=== PATIENT | female | born 1995 | race American Indian/Alaskan Native ===

== ENCOUNTER 2017-08-28 04:27 | Emergency (ER) | payer SELFPAY ==
[2017-08-28 06:11] LABS: Basophils % (Auto) 0.1 % (0.0-1.8); Eosinophils % (Auto) 0.1 % (0.0-4.3); Hematocrit 41.8 % (30.3-42.9); Hemoglobin 13.7 gm/dl (10.1-14.3); Lymphocytes # (Auto) 1.2 K/mm3 (1.2-5.4); Lymphocytes % (Auto) 8.1 % (13.4-35.0); Mean Corpuscular HGB Conc 33 % (30-34); Mean Corpuscular Hemoglobin 31 pg (28-32); Mean Corpuscular Volume 94 fl (79-97); Monocytes # (Auto) 0.6 K/mm3 (0.0-0.8); Platelet Count 237 K/mm3 (140-440); Red Blood Count 4.43 M/mm3 (3.65-5.03)
[2017-08-28 06:26] LABS: Alanine Aminotransferase 16 units/L (7-56); Albumin 4.5 g/dL (3.9-5); BUN/Creatinine Ratio 13; Blood Urea Nitrogen 14 mg/dL (7-17); Calcium 9.8 mg/dL (8.4-10.2); Hemolysis Index 14; Lipase 12 units/L (13-60)
[2017-08-28 07:48] LABS: Bacteria,Urine 1+ /HPF (Negative); Bilirubin,Urine NEG (Negative); Blood,Urine NEG (Negative); Color,Urine Yellow (Yellow); Mucus,Urine FEW /HPF; Nitrite,Urine NEG (Negative); Urobilinogen,Urine < 2.0 mg/dL (<2.0)
[2017-08-28] MEDS ORDERED: TORADOL IM ONE (10:34)
[2017-08-28] MEDS ORDERED: PERCOCET 5/325 PO ONE (10:35)
--- NOTE | 2017-08-28 10:38 | Emergency Department Report ---
ED Abdominal Pain HPI - General Chief Complaint: Abdominal Pain Stated Complaint: ABD PAIN Time Seen by Provider: 08/28/17 10:34 Source: patient, EMS Mode of arrival: Ambulatory Limitations: No Limitations - History of Present Illness MD Complaint: flank pain -: Sudden Location: R flank Radiation: suprapubic Severity: severe Severity scale (0 -10): 8 Quality: sharp Improves With: nothing Worsens With: nothing Associated Symptoms: other (urinary urgency) - Related Data Previous Rx's Medication Instructions Recorded Last Taken Type Tamsulosin [Flomax] 0.4 mg PO QDAY 5 Days #5 cap 08/28/17 Unknown Rx oxyCODONE /ACETAMINOPHEN [Percocet 1 tab PO Q4HR #12 tab 08/28/17 Unknown Rx 5/325] Allergies Allergy/AdvReac Type Severity Reaction Status Date / Time amoxicillin Allergy Hives Verified 08/28/17 04:54 erythromycin base Allergy Hives Verified 08/28/17 04:54 ED Review of Systems ROS: Stated complaint: ABD PAIN Other details as noted in HPI Comment: All other systems reviewed and negative Constitutional: denies: chills, fever Respiratory: denies: cough ED Past Medical Hx - Past Medical History Previous Medical History?: No - Surgical History Past Surgical History?: No - Social History Smoking Status: Current Every Day Smoker Substance Use Type: None - Medications Home Medications: Home Medications Medication Instructions Recorded Confirmed Last Taken Type Tamsulosin [Flomax] 0.4 mg PO QDAY 5 Days #5 cap 08/28/17 Unknown Rx oxyCODONE /ACETAMINOPHEN [Percocet 1 tab PO Q4HR #12 tab 08/28/17 Unknown Rx 5/325] ED Physical Exam - General Limitations: No Limitations General appearance: alert, in no apparent distress - Head Head exam: Present: atraumatic, normocephalic - Eye Eye exam: Present: normal appearance - ENT ENT exam: Present: mucous membranes moist - Neck Neck exam: Present: normal inspection. Absent: meningismus - Respiratory Respiratory exam: Present: normal lung sounds bilaterally. Absent: respiratory distress, wheezes, rales, rhonchi - Cardiovascular Cardiovascular Exam: Present: regular rate, normal rhythm, normal heart sounds. Absent: systolic murmur, diastolic murmur, rubs, gallop - GI/Abdominal GI/Abdominal exam: Present: soft, normal bowel sounds. Absent: distended, tenderness, guarding, rebound - Extremities Exam Extremities exam: Present: normal inspection - Back Exam Back exam: Present: normal inspection. Absent: CVA tenderness (R), CVA tenderness (L) - Neurological Exam Neurological exam: Present: alert, oriented X3 - Psychiatric Psychiatric exam: Present: normal affect, normal mood - Skin Skin exam: Present: warm, dry, intact, normal color. Absent: rash ED Course Vital Signs 08/28/17 08/28/17 08/28/17 04:55 10:49 10:50 Temperature 97.8 F Pulse Rate 70 Respiratory 18 18 18 Rate Blood Pressure 137/97 Blood Pressure [Right] O2 Sat by Pulse 100 Oximetry 08/28/17 10:53 Temperature 98.1 F Pulse Rate 63 Respiratory 16 Rate Blood Pressure Blood Pressure 130/83 [Right] O2 Sat by Pulse 98 Oximetry ED Medical Decision Making - Lab Data Result diagrams: 08/28/17 05:01 08/28/17 05:01 - Radiology Data Radiology results: report reviewed - Medical Decision Making renal colic due to small right UVJ stone. patient given instructions. Pain improved with treatment in Ed. Critical care attestation.: If time is entered above; I have spent that time in minutes in the direct care of this critically ill patient, excluding procedure time. ED Disposition Clinical Impression: Renal colic on right side, Ureterolithiasis Disposition: TO HOME OR SELFCARE Is pt being admited?: No Does the pt Need Aspirin: No Condition: Good Instructions: Kidney Stones (ED) Prescriptions: oxyCODONE /ACETAMINOPHEN [Percocet 5/325] 1 tab PO Q4HR #12 tab Tamsulosin [Flomax] 0.4 mg PO QDAY 5 Days #5 cap Referrals: SRI MUÑOZ MD [Primary Care Provider] - 3-5 Days Time of Disposition: 12:10
[2017-08-28] MEDS ORDERED: TORADOL ONE (10:44)
[2017-08-28 10:55] VITALS: BP 130/83
--- NOTE | 2017-08-28 11:42 | Cat Scan Report ---
CT abdomen and pelvis without contrast: Right flank pain. Transverse images are obtained from the lower chest to the ischium. Coronal and sagittal 2-D reformatted images included. The visualized lung bases are normal. The abdominal organs appear normal. The kidneys are normal in size and contour. Suspicion of faint granular calculus in the central right collecting system. Mild increased density in the lower left collecting system with a 1-2 mm sized calculus centrally. The right ureter is not dilated however there is a 3 mm sized calculus suspected at the right UV junction. The unopacified bowel and mesentery is only remarkable in that there is mild increased colonic gas. Free fluid identified in the pelvis. No obvious pelvic organ enlargement. Impression: 1. Small bilateral renal calculi. 2. Suspect small right UVJ calculus. No obstruction. 3. Nonspecific pelvic fluid most likely in the cul-de-sac.
== END 2017-08-28 12:18 | disposition home or self-care (01) ==
LOC: ED 04:27
DX: N20.2 Calculus of kidney with calculus of ureter (principal); F17.200 Nicotine dependence, unspecified, uncomplicated; Z88.1 Allergy status to other antibiotic agents
CPT/HCPCS: 36415; 74176; 80053; 81001; 83690; 84703; 85025; 96372; 99284; J1885

== ENCOUNTER 2018-01-22 07:54 | Emergency (ER) | payer OTHER ==
[2018-01-22 08:06] VITALS: BP 112/71
--- NOTE | 2018-01-22 10:10 | Emergency Department Report ---
Chief Complaint: Extremity Injury, Upper Stated Complaint: TUMOR IN ARM BURNING AND PAIN Time Seen by Provider: 01/22/18 10:06 - HPI History of Present Illness: Patient is a 22-year-old female who is presenting with right arm pain. 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 Patient states she's been having difficulty sleeping for the past several days. Patient is not taking anything [id number] for this discomfort. Patient states the pain is 7 out of 10. Patient denies any fevers chills nausea vomiting diarrhea. There's been no injury. Patient states that the size of the swelling is not larger is just getting more uncomfortable. - ROS Review of Systems: All systems reviewed and are negative - Exam Vital Signs: Vital Signs 01/22/18 08:01 Temperature 98.5 F Pulse Rate 81 Respiratory 18 Rate Blood Pressure 112/71 O2 Sat by Pulse 98 Oximetry Physical Exam: Focused physical exam the patient's right deltoid does show approximately quarter sized area of swelling deep to the skin. There is no induration fluctuance or redness present. There is no erythema or warmth. The mass is slightly mobile. MSE screening note: Focused history and physical exam performed. Due to findings the following was ordered: ED Medical Decision Making - Medical Decision Making Patient's condition is chronic and does not appear to be infected requiring antibiotic therapy. Patient has not had a definitive diagnosis of what this growth of the skin is. Patient be referred to surgery for possible biopsy. Patient also be given [facility] information for follow-up primary care. Patient is not insured and has a nonmedical emergency at this time and opt to not pay E $150 co-pay to be given prescriptions. ED Disposition for MSE Clinical Impression: Mass of arm Qualifiers: Laterality: right Qualified Code(s): R22.31 - Localized swelling, mass and lump , right upper limb Disposition: MED SCREENING EXAM-LEFT Is pt being admited?: No Does the pt Need Aspirin: No Condition: Stable Additional Instructions: Please take up to 800 mg of Motrin every 6 hours for pain and swelling Referrals: [facility] [Outside] - 3-5 Days RUDDY GOODE MD [Staff Physician] - 3-5 Days
== END 2018-01-22 10:17 | disposition left against medical advice (07) ==
LOC: ED 07:54
DX: R22.31 Localized swelling, mass and lump, right upper limb (principal)
CPT/HCPCS: 99282

== ENCOUNTER 2018-02-26 15:22 | Emergency (ER) | payer SELFPAY ==
[2018-02-26 15:56] VITALS: BP 112/82
[2018-02-26 16:43] LABS: HCG Qualitative,Urine Negative (Negative)
[2018-02-26 16:44] LABS: Bacteria,Urine 1+ /HPF (Negative); Bilirubin,Urine NEG (Negative); Blood,Urine NEG (Negative); Color,Urine Yellow (Yellow); Mucus,Urine FEW /HPF; Protein,Urine <15 mg/dL mg/dL (Negative); Urobilinogen,Urine < 2.0 mg/dL (<2.0); WBC,Urine < 1.0 /HPF (0.0-6.0)
--- NOTE | 2018-02-26 17:34 | Emergency Department Report ---
ED Abdominal Pain HPI - General Chief Complaint: Abdominal Pain Stated Complaint: ABDOMINAL PAINS Time Seen by Provider: 02/26/18 17:24 Source: patient Mode of arrival: Ambulatory Limitations: No Limitations - History of Present Illness Initial Comments: This is a 22-year-old -[place] female who presents with lower pelvic pain and dysuria for 3 days. Patient states she has also had some nausea for 1 week. Patient states she took a home test 3 days ago and had faint lines and unsure if she has . Patient states she discontinued taking Effexor one week ago with hopes of being . Patient states lower fifth pain is intermittent and 6 out of 10 on pain scale with cramping intensity. Cramping should also states she had diarrhea 2 days ago for 1 day, liquid consistency. Last menstrual period was 02/01/2018, A3. Patient denies frequency, urgency, vaginal discharge or bleeding, chest pain, shortness of breath, and fever. MD Complaint: abdominal pain Location: diffuse Radiation: none Migration to: no migration Severity: mild Severity scale (0 -10): 6 Quality: cramping Consistency: intermittent Improves With: nothing Worsens With: nothing Associated Symptoms: nausea, diarrhea. denies: vomiting - Related Data LMP Date: 02/11/18 LMP (females 10-50): 1 month Previous Rx's Medication Instructions Recorded Last Taken Type Tamsulosin [Flomax] 0.4 mg PO QDAY 5 Days #5 cap 08/28/17 Unknown Rx oxyCODONE /ACETAMINOPHEN [Percocet 1 tab PO Q4HR #12 tab 08/28/17 Unknown Rx 5/325] Naproxen [Naprosyn TAB] 500 mg PO BID PRN #15 tablet 02/26/18 Unknown Rx Allergies Allergy/AdvReac Type Severity Reaction Status Date / Time amoxicillin Allergy Hives Verified 08/28/17 04:54 erythromycin base Allergy Hives Verified 08/28/17 04:54 ED Review of Systems ROS: Stated complaint: ABDOMINAL PAINS Other details as noted in HPI Constitutional: denies: chills, fever Respiratory: denies: cough, shortness of breath, wheezing Cardiovascular: denies: chest pain, palpitations Gastrointestinal: abdominal pain (generalized abdominal cramping), nausea. denies: vomiting, diarrhea, constipation, hematemesis, melena, hematochezia Genitourinary: denies: urgency, dysuria, frequency, discharge Musculoskeletal: denies: back pain, joint swelling, arthralgia Neurological: denies: headache, weakness, numbness, paresthesias Psychiatric: denies: anxiety, depression ED Past Medical Hx - Past Medical History Previous Medical History?: Yes Additional medical history: Right arm tumor - Surgical History Past Surgical History?: No - Social History Smoking Status: Never Smoker - Medications Home Medications: Home Medications Medication Instructions Recorded Confirmed Last Taken Type Tamsulosin [Flomax] 0.4 mg PO QDAY 5 Days #5 cap 08/28/17 Unknown Rx oxyCODONE /ACETAMINOPHEN [Percocet 1 tab PO Q4HR #12 tab 08/28/17 Unknown Rx 5/325] Naproxen [Naprosyn TAB] 500 mg PO BID PRN #15 tablet 02/26/18 Unknown Rx ED Physical Exam - General Limitations: No Limitations General appearance: alert, in no apparent distress - Respiratory Respiratory exam: Present: normal lung sounds bilaterally. Absent: respiratory distress - Cardiovascular Cardiovascular Exam: Present: regular rate, normal rhythm. Absent: systolic murmur, diastolic murmur, rubs, gallop - GI/Abdominal GI/Abdominal exam: Present: soft, tenderness (right upper quadrant tenderness), normal bowel sounds. Absent: organomegaly, mass - Back Exam Back exam: Present: normal inspection, full ROM. Absent: CVA tenderness (R), CVA tenderness (L) - Neurological Exam Neurological exam: Present: alert, oriented X3, normal gait - Psychiatric Psychiatric exam: Present: normal affect, normal mood - Skin Skin exam: Present: warm, dry, intact, normal color. Absent: rash ED Course Vital Signs 02/26/18 02/26/18 15:53 20:41 Temperature 98.7 F 98.5 F Pulse Rate 77 82 Respiratory 16 18 Rate Blood Pressure 112/82 O2 Sat by Pulse 98 97 Oximetry ED Medical Decision Making - Lab Data Result diagrams: 02/26/18 17:39 02/26/18 17:39 Lab Results 02/26/18 02/26/18 02/26/18 Range/Units 16:20 17:39 17:39 WBC 7.1 (4.5-11.0) K/mm3 RBC 4.62 (3.65-5.03) M/mm3 Hgb 14.7 H (10.1-14.3) gm/dl Hct 43.2 H (30.3-42.9) % MCV 94 (79-97) fl MCH 32 (28-32) pg MCHC 34 (30-34) % RDW 13.1 L (13.2-15.2) % Plt Count 208 (140-440) K/mm3 Lymph % (Auto) 28.8 (13.4-35.0) % [place] % (Auto) 4.7 (0.0-7.3) % Eos % (Auto) 1.5 (0.0-4.3) % Baso % (Auto) 0.2 (0.0-1.8) % Lymph # 2.0 (1.2-5.4) K/mm3 [place] # 0.3 (0.0-0.8) K/mm3 Eos # 0.1 (0.0-0.4) K/mm3 Baso # 0.0 (0.0-0.1) K/mm3 Seg Neutrophils % 64.8 (40.0-70.0) % Seg Neutrophils # 4.6 (1.8-7.7) K/mm3 Sodium 143 (137-145) mmol/L Potassium 4.4 (3.6-5.0) mmol/L Chloride 103.0 (98-107) mmol/L Carbon Dioxide 26 (22-30) mmol/L Anion Gap 18 mmol/L BUN 12 (7-17) mg/dL Creatinine 0.6 L (0.7-1.2) mg/dL Estimated GFR > 60 ml/min BUN/Creatinine Ratio 20 % Glucose 77 (65-100) mg/dL Calcium 9.8 (8.4-10.2) mg/dL Total Bilirubin < 0.20 (0.1-1.2) mg/dL AST 16 (5-40) units/L ALT 10 (7-56) units/L Alkaline Phosphatase 80 (35-129) units/L Total Protein 6.6 (6.3-8.2) g/dL Albumin 4.5 (3.9-5) g/dL Albumin/Globulin Ratio 2.1 % Lipase 19 (13-60) units/L Urine Color Yellow (Yellow) Urine Turbidity Clear (Clear) Urine pH 6.0 (5.0-7.0) Ur Specific [place] 1.020 (1.003-1.030) Urine Protein <15 mg/dl (Negative) mg/dL Urine Glucose (UA) Neg (Negative) mg/dL Urine Ketones Neg (Negative) mg/dL Urine Blood Neg (Negative) Urine Nitrite Neg (Negative) Ur Reducing Substances Not Reportable Urine Bilirubin Neg (Negative) Urine Ictotest Not Reportable Urine Urobilinogen < 2.0 (<2.0) mg/dL Ur Leukocyte Esterase Neg (Negative) Urine WBC (Auto) < 1.0 (0.0-6.0) /HPF Urine RBC (Auto) 1.0 (0.0-6.0) /HPF U Epithel Cells (Auto) 5.0 (0-13.0) /HPF Urine Bacteria (Auto) 1+ (Negative) /HPF Urine Mucus Few /HPF Urine HCG, Qual Negative (Negative) - Radiology Data Radiology results: report reviewed PROCEDURE: CT ABDOMEN PELVIS WO CON TECHNIQUE: Computerized axial tomography of the abdomen and pelvis was performed without intravenous contrast. This study is performed without intravascular contrast material and its sensitivity for abdominal and pelvic pathology, including neoplasms, inflammation, abscess, free fluid, thrombosis, arterial dissection and infarction, is reduced compared with a contrast enhanced study. HISTORY: RUQ tenderness COMPARISON: No prior studies are available for comparison. FINDINGS: Visualized lower thorax: No significant abnormality. Liver: Normal size and attenuation. Spleen: Normal size and attenuation. Gallbladder and biliary system: Normal. Pancreas: Normal. Adrenals: Normal. Kidneys: No hydronephrosis. Small 2 millimeter nonobstructing left renal calculus GI tract: Appendix is visualized and does not appear inflamed. No bowel obstruction or acute inflammation is seen. There is moderate volume of stool in the colon. Lymph nodes and mesentery: Normal. Vasculature: Normal. Bladder: Normal. Reproductive organs: Limited evaluation. There is a probable 2.5 centimeter right ovarian cyst. Peritoneum: Moderate volume of fluid is seen in the pelvis, more than expected for physiologic fluid. Musculoskeletal structures: No significant abnormality. Other: None. IMPRESSION: Moderate volume of free fluid is seen in the pelvis, more than expected for physiologic fluid. Findings could be related to inflammatory process or other process such as a ruptured ovarian cyst. - Medical Decision Making This is a 22-year-old -[place] female who presents with intermittent abdominal pain and dysuria for one week. Patient was examined by me. Vitals are normal and patient is in no acute distress. Obtained CBC, CMP, lipase, and CT of the abdomen and pelvis. Moderate volume of free fluid is seen in the pelvis, more than expected for physiologic fluid. Findings could be related to inflammatory process or other process such as a ruptured ovarian cyst. Negative urine hCG and all of his labs are unremarkable. Patient was aware of ovarian cysts and informed of the results. Plan discussed with patient to discharge home and follow-up with [facility]. Patient given referrals of [facility] to follow-up with. Patient discharged home in stable condition. Follow up with PCP in 2-3 days. Critical care attestation.: If time is entered above; I have spent that time in minutes in the direct care of this critically ill patient, excluding procedure time. ED Disposition Clinical Impression: Ruptured ovarian cyst Abdominal pain Qualifiers: Abdominal location: right upper quadrant Qualified Code(s): R10.11 - Right upper quadrant pain Disposition: TO HOME OR SELFCARE Is pt being admited?: No Does the pt Need Aspirin: No Condition: Stable Instructions: Ovarian Cyst (ED), Abdominal Pain (ED) Additional Instructions: Follow-up with [facility] for further management of symptoms. Take ibuprofen or Tylenol for pain. Follow up with primary care provider in 2-3 days. Prescriptions: Naproxen [Naprosyn TAB] 500 mg PO BID PRN #15 tablet PRN Reason: Pain, Moderate (4-6) Referrals: [facility] [Provider Group] - 3-5 Days [facility] [Provider Group] - 3-5 Days [facility] [Outside] - 3-5 Days Time of Disposition: 20:23 Print Language: IRAQI
[2018-02-26 17:49] LABS: Basophils % (Auto) 0.2 % (0.0-1.8); Eosinophils # (Auto) 0.1 K/mm3 (0.0-0.4); Eosinophils % (Auto) 1.5 % (0.0-4.3); Hematocrit 43.2 % (30.3-42.9); Hemoglobin 14.7 gm/dl (10.1-14.3); Lymphocytes % (Auto) 28.8 % (13.4-35.0); Mean Corpuscular HGB Conc 34 % (30-34); Mean Corpuscular Hemoglobin 32 pg (28-32); Mean Corpuscular Volume 94 fl (79-97); Monocytes # (Auto) 0.3 K/mm3 (0.0-0.8); Monocytes % (Auto) 4.7 % (0.0-7.3); Platelet Count 208 K/mm3 (140-440); Red Blood Count 4.62 M/mm3 (3.65-5.03); Red Cell Distribution Width 13.1 % (13.2-15.2)
[2018-02-26 18:11] LABS: Alanine Aminotransferase 10 units/L (7-56); Albumin 4.5 g/dL (3.9-5); BUN/Creatinine Ratio 20; Blood Urea Nitrogen 12 mg/dL (7-17); Calcium 9.8 mg/dL (8.4-10.2); Hemolysis Index 25; Lipase 19 units/L (13-60)
--- NOTE | 2018-02-26 19:55 | Cat Scan Report ---
FINAL REPORT PROCEDURE: CT ABDOMEN PELVIS WO CON TECHNIQUE: Computerized axial tomography of the abdomen and pelvis was performed without intravenous contrast. This study is performed without intravascular contrast material and its sensitivity for abdominal and pelvic pathology, including neoplasms, inflammation, abscess, free fluid, thrombosis, arterial dissection and infarction, is reduced compared with a contrast enhanced study. HISTORY: RUQ tenderness COMPARISON: No prior studies are available for comparison. FINDINGS: Visualized lower thorax: No significant abnormality. Liver: Normal size and attenuation. Spleen: Normal size and attenuation. Gallbladder and biliary system: Normal. Pancreas: Normal. Adrenals: Normal. Kidneys: No hydronephrosis. Small 2 millimeter nonobstructing left renal calculus GI tract: Appendix is visualized and does not appear inflamed. No bowel obstruction or acute inflammation is seen. There is moderate volume of stool in the colon. Lymph nodes and mesentery: Normal. Vasculature: Normal. Bladder: Normal. Reproductive organs: Limited evaluation. There is a probable 2.5 centimeter right ovarian cyst. Peritoneum: Moderate volume of fluid is seen in the pelvis, more than expected for physiologic fluid. Musculoskeletal structures: No significant abnormality. Other: None. IMPRESSION: Moderate volume of free fluid is seen in the pelvis, more than expected for physiologic fluid. Findings could be related to inflammatory process or other process such as a ruptured ovarian cyst.
== END 2018-02-26 20:41 | disposition home or self-care (01) ==
LOC: ED 15:22
DX: N83.209 Unspecified ovarian cyst, unspecified side (principal); R10.11 Right upper quadrant pain; Z88.1 Allergy status to other antibiotic agents
CPT/HCPCS: 36415; 74176; 80053; 81001; 81025; 83690; 85025

== ENCOUNTER 2018-12-01 22:06 | Emergency (ER) | payer MEDICAID ==
[2018-12-01 22:28] VITALS: BP 96/64
--- NOTE | 2018-12-01 22:28 | Emergency Department Report ---
Chief Complaint: Abdominal Pain Stated Complaint: ABD PAIN Time Seen by Provider: 12/01/18 22:27 - HPI History of Present Illness: lmp 10/09 co nausea/abd pain no vag bleed/dc no care mse completed - Exam Vital Signs: Vital Signs 12/01/18 22:26 Temperature 99 F Pulse Rate 85 Respiratory 18 Rate Blood Pressure 96/64 O2 Sat by Pulse 100 Oximetry MSE screening note: Focused history and physical exam performed. Due to findings the following was ordered: ED Disposition for MSE Condition: Stable Instructions: Abdominal Pain (ED)
[2018-12-01] MEDS ORDERED: NACL 0.9% 1000 ML 1,000 ML IV ONE (22:29)
[2018-12-01] MEDS ORDERED: ZOFRAN IV ONE (22:29)
[2018-12-01 22:53] LABS: Basophils # (Auto) 0.2 K/mm3 (0.0-0.1); Eosinophils # (Auto) 0.1 K/mm3 (0.0-0.4); Eosinophils % (Auto) 0.5 % (0.0-4.3); Hematocrit 40.6 % (30.3-42.9); Hemoglobin 13.6 gm/dl (10.1-14.3); Lymphocytes # (Auto) 1.6 K/mm3 (1.2-5.4); Lymphocytes % (Auto) 14.5 % (13.4-35.0); Mean Corpuscular HGB Conc 34 % (30-34); Mean Corpuscular Volume 95 fl (79-97); Monocytes # (Auto) 0.4 K/mm3 (0.0-0.8); Monocytes % (Auto) 3.9 % (0.0-7.3); Platelet Count 254 K/mm3 (140-440); Red Cell Distribution Width 12.6 % (13.2-15.2)
[2018-12-01 23:12] LABS: BUN/Creatinine Ratio 15; Blood Urea Nitrogen 9 mg/dL (7-17); Calcium 9.3 mg/dL (8.4-10.2); Hemolysis Index 16
[2018-12-01 23:41] LABS: Bilirubin,Urine NEG (Negative); Blood,Urine NEG (Negative); Color,Urine Yellow (Yellow); Mucus,Urine 3+ /HPF; Protein,Urine <15 mg/dL mg/dL (Negative)
== END 2018-12-02 01:19 | disposition left against medical advice (07) ==
LOC: EEVIPCON 22:06 → ED 22:06
DX: R10.9 Unspecified abdominal pain (principal); Z53.21 Procedure and treatment not carried out due to patient leaving prior to being seen by health care provider
CPT/HCPCS: 36415; 80048; 81001; 84702; 85025

== ENCOUNTER 2019-05-23 11:16 | Outpatient (CLI) | payer OTHER ==
[2019-05-23] MEDS ORDERED: LACTATED RINGERS 1,000 ML ONE (12:37)
[2019-05-23] MEDS ORDERED: LACTATED RINGERS 500 ML IV ONE (12:51)
[2019-05-23] MEDS ORDERED: TERBUTALINE 1 MG/1 ML INJ ONE (13:00)
[2019-05-23] MEDS: TERBUTALINE 1 MG/1 ML INJ SUB-Q SCH ×2 (13:02→13:52)
[2019-05-23 13:30] LABS: Bacteria,Urine 1+ /HPF (Negative); Bilirubin,Urine NEG (Negative); Blood,Urine NEG (Negative); Color,Urine Yellow (Yellow); Mucus,Urine 3+ /HPF; Protein,Urine <15 mg/dL mg/dL (Negative); Urobilinogen,Urine < 2.0 mg/dL (<2.0)
[2019-05-23 13:53] LABS: Amphetamine Screen,Urine PRESUMPTIVE NEGATIVE; Benzodiazepines Screen,Urine PRESUMPTIVE NEGATIVE; Cocaine Screen,Urine PRESUMPTIVE NEGATIVE; Methadone Screen,Urine PRESUMPTIVE NEGATIVE; Opiate Screen,Urine PRESUMPTIVE NEGATIVE
[2019-05-23 14:07] LABS: Cannabinoid Screen,Urine PRESUMPTIVE POSITIVE
[2019-05-23 14:15] VITALS: BP 105/57
== END 2019-05-23 14:28 | disposition left against medical advice (07) ==
LOC: TRG 11:16
PROVIDERS: ATTEND Obstetrics & Gynecology
DX: O26.892 Other specified pregnancy related conditions, second trimester (principal); R10.2 Pelvic and perineal pain; R30.0 Dysuria; R35.0 Frequency of micturition; O99.333 Smoking (tobacco) complicating pregnancy, third trimester; F17.200 Nicotine dependence, unspecified, uncomplicated; Z3A.32 32 weeks gestation of pregnancy
CPT/HCPCS: 59025; 80307; 81001; 96372; J3105; J7120

== ENCOUNTER 2019-05-25 10:40 | Outpatient (CLI) | payer OTHER ==
[2019-05-25 11:16] VITALS: BP 104/63
[2019-05-25] MEDS ORDERED: LACTATED RINGERS 500 ML IV ONE (11:45)
[2019-05-25] MEDS ORDERED: LACTATED RINGERS 1,000 ML IV SCH (12:00)
[2019-05-25 12:26] LABS: Bilirubin,Urine NEG (Negative); Blood,Urine MOD (Negative); Color,Urine Yellow (Yellow); Mucus,Urine FEW /HPF; Protein,Urine <15 mg/dL mg/dL (Negative); Urobilinogen,Urine < 2.0 mg/dL (<2.0)
[2019-05-25 12:45] LABS: Amphetamine Screen,Urine PRESUMPTIVE NEGATIVE; Benzodiazepines Screen,Urine PRESUMPTIVE NEGATIVE; Cocaine Screen,Urine PRESUMPTIVE NEGATIVE; Methadone Screen,Urine PRESUMPTIVE NEGATIVE; Opiate Screen,Urine PRESUMPTIVE NEGATIVE
[2019-05-25 13:04] LABS: Cannabinoid Screen,Urine PRESUMPTIVE POSITIVE
[2019-05-25] MEDS ORDERED: oxyCODONE /ACETAMINOPHEN 5-325MG TAB PO PRN (13:28)
[2019-05-25 14:08] LABS: Basophils % (Auto) 0.1 % (0.0-1.8); Eosinophils % (Auto) 0.4 % (0.0-4.3); Hematocrit 34.9 % (30.3-42.9); Hemoglobin 11.5 gm/dl (10.1-14.3); Lymphocytes # (Auto) 1.2 K/mm3 (1.2-5.4); Lymphocytes % (Auto) 9.3 % (13.4-35.0); Mean Corpuscular HGB Conc 33 % (30-34); Mean Corpuscular Volume 91 fl (79-97); Monocytes # (Auto) 0.5 K/mm3 (0.0-0.8); Platelet Count 195 K/mm3 (140-440); Red Blood Count 3.82 M/mm3 (3.65-5.03); Red Cell Distribution Width 13.5 % (13.2-15.2)
[2019-05-25] MEDS ORDERED: AMPICILLIN/NS 2 GM/100 ML 2 GM/100 ML BAG IV ONE (14:37)
== END 2019-05-25 15:11 | disposition home or self-care (01) ==
LOC: TRG 10:40
PROVIDERS: ATTEND Obstetrics & Gynecology
DX: O26.893 Other specified pregnancy related conditions, third trimester (principal); M54.9 Dorsalgia, unspecified; O99.343 Other mental disorders complicating pregnancy, third trimester; F32.9 Major depressive disorder, single episode, unspecified; O99.333 Smoking (tobacco) complicating pregnancy, third trimester; Z3A.32 32 weeks gestation of pregnancy
CPT/HCPCS: 36415; 59025; 80307; 81001; 85025; 87086; 96361; 96374; J0290; J7120; 96360; J0690

== ENCOUNTER 2019-07-14 18:47 | Outpatient (CLI) | payer OTHER ==
[2019-07-14 19:03] VITALS: BP 113/78
== END 2019-07-14 20:11 | disposition home or self-care (01) ==
LOC: TRG 18:47
PROVIDERS: ATTEND Obstetrics & Gynecology
DX: O47.1 False labor at or after 37 completed weeks of gestation (principal); Z3A.39 39 weeks gestation of pregnancy
CPT/HCPCS: 59025

== ENCOUNTER 2019-07-19 16:25 | Outpatient (CLI) | payer OTHER ==
[2019-07-19 18:07] VITALS: BP 111/76
--- NOTE | 2019-07-19 20:26 | Ultrasound Report ---
Limited OB ultrasound INDICATION: well-being FINDINGS: There is a single intrauterine in a cephalic presentation. The amniotic fluid index is 15.2 cm which is within the normal range. heart rate is 153 bpm. IMPRESSION: There is a single intrauterine . Amniotic fluid index is normal. BIOPHYSICAL PROFILE INDICATION: well-being COMPARISON: None FINDINGS: breathing movement: 2/2 movement: 2/2 posture and tone: 2/2 Qualitative amniotic fluid volume: 2/2 IMPRESSION: Total score for biophysical profile is 8/8 heart rate is 153 bpm Signer Name: Kolton Ramirez MD Signed: 07/19/2019 8:21 PM Workstation Name: [id number]
== END 2019-07-19 20:34 | disposition home or self-care (01) ==
LOC: TRG 16:25
PROVIDERS: ATTEND Obstetrics & Gynecology
DX: O47.1 False labor at or after 37 completed weeks of gestation (principal); Z3A.40 40 weeks gestation of pregnancy
CPT/HCPCS: 76815; 76819

== ENCOUNTER 2019-07-22 11:57 | Inpatient (IN) | payer OTHER ==
--- NOTE | 2019-07-22 18:49 | Ultrasound Report ---
US OB BPP wo non-stress INDICATION / CLINICAL INFORMATION: 40 weeks and 6 days gest. COMPARISON: None available. FINDINGS: breathing movements: 2 movements: 2 posture and tone: 2 Amniotic fluid volume: 2 Total score for biophysical profile: 8 IMPRESSION: 1. Normal study. Signer Name: Ponce Wilson MD Signed: 07/22/2019 6:45 PM Workstation Name: [id number]
--- NOTE | 2019-07-22 19:54 | History and Physical Report ---
History of Present Illness Date of examination: 07/22/19 Chief complaint: Contractions History of present illness: Pt is a 24yo BF EDC 07/16/19; EGA 40 6/7 weeks presents to L&D complaining of RUC's q 3-5 mins. She received care at [facility] since 12 weeks and co-managed by [facility] for Opiod abuse. records are available and GBS is Positive. Past History Past Medical History: asthma, hypertension, other (anxiety and depression) Past Surgical History: no surgical history Family/Genetic History: hypertension Social history: no significant social history, , prescription drug abuse - Obstetrical History Expected Date of Delivery: 07/16/19 Actual Gestation: 41 Week(s) 0 Day(s) : 2 Medications and Allergies Allergies Allergy/AdvReac Type Severity Reaction Status Date / Time amoxicillin Allergy Hives Verified 08/28/17 04:54 erythromycin base Allergy Hives Verified 08/28/17 04:54 latex Allergy Rash Verified 12/01/18 22:14 Home Medications Medication Instructions Recorded Confirmed Last Taken Type No Known Home Medications [No 05/25/19 07/22/19 Unknown History Reported Home Medications] Review of Systems All systems: negative - Vital Signs Vital signs: Vital Signs Temp Pulse Resp BP 98.3 F 108 H 18 138/61 07/22/19 18:30 07/22/19 18:30 07/22/19 18:30 07/22/19 18:30 Temp Pulse Resp BP Pulse Ox 98.3 F 108 H 18 138/61 07/22/19 18:30 07/22/19 18:30 07/22/19 18:30 07/22/19 18:30 - Physical Exam Breasts: Positive: deferred Cardiovascular: Regular rate Lungs: Positive: Clear to auscultation Abdomen: Positive: normal appearance Genitourinary (Female): Positive: normal external genitalia Vagina: Positive: normal moisture Uterus: Positive: enlarged Extremities: Positive: normal - Obstetrical FHR: category 1 Uterine Contraction Monitor Mode: External Cervical Dilatation: 1.5 (per nurse) Cervical Effacement Percentage: 60 (per nurse) station: -3 Uterine Contraction Pattern: Irregular Uterine Tone Measurement Phase: Contraction Uterine Contraction Intensity: Moderate Results Result Diagrams: 07/22/19 20:33 All other labs normal. Ultrasound: report reviewed (BPP 03/04) Assessment and Plan - Patient Problems (1) 40 weeks gestation of Onset Date: 07/22/19 Current Visit: Yes Status: Acute Plan to address problem: A: IUP @ 40 6/7 weeks in early labor GBS Positive P: Admit to L&D for low dose pitocin induction of labor IV Clindamycin
[2019-07-22] MEDS ORDERED: ePHEDrine SULFATE 50 MG/1 ML INJ IV PRN (20:11)
[2019-07-22] MEDS ORDERED: TERBUTALINE 1 MG/1 ML INJ IVP PRN (20:11)
[2019-07-22] MEDS ORDERED: ONDANSETRON 4 MG/2 ML INJ IV PRN (20:11)
[2019-07-22] MEDS ORDERED: fentaNYL 100 MCG/2 ML INJ IV PRN (20:11)
[2019-07-22] MEDS ORDERED: MINERAL OIL 30 ML ORAL LIQD PO PRN (20:11)
[2019-07-22] MEDS ORDERED: LIDOCAINE (2%) 20 MG/1 ML VIAL 20 ML MDV INFILTRATI ONE (20:11)
[2019-07-22] MEDS ORDERED: TERBUTALINE 1 MG/1 ML INJ SUB-Q PRN (20:11)
[2019-07-22] MEDS ORDERED: BUTORPHANOL 2 MG/1 ML INJ IV PRN (20:11)
[2019-07-22] MEDS ORDERED: ZOLPIDEM 5 MG TAB PO PRN (20:33)
[2019-07-22 20:55] LABS: Hemoglobin 10.4 gm/dl (10.1-14.3); Mean Corpuscular HGB Conc 33 % (30-34); Mean Corpuscular Volume 87 fl (79-97); Platelet Count 195 K/mm3 (140-440); Red Blood Count 3.58 M/mm3 (3.65-5.03); Red Cell Distribution Width 14.8 % (13.2-15.2)
[2019-07-22] MEDS ORDERED: OXYTOCIN DRIP 30 UNITS/500 ML BAG IV SCH ×2 (21:00)
[2019-07-22] MEDS ORDERED: OXYTOCIN 20 UNIT/1000ML DRIP 20 UNITS/1,000 ML BAG IV SCH (21:00)
[2019-07-22] MEDS: LACTATED RINGERS 1,000 ML IV SCH (23:27)
[2019-07-23] MEDS: LACTATED RINGERS 1,000 ML IV SCH ×3 (07:55→15:10)
[2019-07-23] MEDS ORDERED: FLU VACC QUAD 2019-20 (3 YR UP)/PF 60 MCG/0.5 ML SYRINGE IM ONE (12:00)
--- NOTE | 2019-07-23 12:18 | Progress Note ---
Assessment and Plan - Patient Problems (1) 40 weeks gestation of Onset Date: 07/22/19 Current Visit: Yes Status: Acute Plan to address problem: A: IUP @ 41 0/7 weeks in labor GBS Positive P: Continue with pitocin induction of labor IV Clindamycin Subjective - Subjective Date of service: 07/23/19 Principal diagnosis: IUP @ 41 0/7 weeks Interval history: Pt is a 24yo BF EDC 07/16/19; EGA 41 0/7 weeks presented to L&D complaining of RUC's q 3-5 mins. She received care at [facility] since 12 weeks and co-managed by [facility] for Opiod abuse. She is currently on pitocin 24mu/min and rory q 3-4 mins. GBS is Positive. Patient reports: loss of fluid, movement normal, contractions, no new complaints, no vaginal bleeding Objective - Vital Signs Vital Signs: Vital Signs - 12hr 07/23/19 07/23/19 07/23/19 01:01 03:00 04:00 Temperature Pulse Rate 96 H 93 H 81 Blood Pressure 115/79 92/53 110/57 07/23/19 07/23/19 07/23/19 05:00 06:00 07:01 Temperature Pulse Rate 85 76 88 Blood Pressure 91/54 108/66 111/80 07/23/19 07/23/19 07/23/19 08:00 09:01 10:00 Temperature 97.8 F Pulse Rate 101 H 96 H Blood Pressure 118/80 103/62 07/23/19 07/23/19 11:02 12:01 Temperature Pulse Rate 96 H 93 H Blood Pressure 119/74 117/63 - Exam Breasts: deferred Abdomen: Present: normal appearance, soft Uterus: Present: normal FHR: category 1 Uterine Contraction Monitor Mode: External Cervical Dilatation: 2 Cervical Effacement Percentage: 80 station: -2 Uterine Contraction Pattern: Regular Uterine Tone Measurement Phase: Contraction Uterine Contraction Intensity: Moderate - Labs Labs: Abnormal Labs 07/22/19 20:33 RBC 3.58 L Laboratory Results - last 24 hr 07/22/19 07/22/19 20:33 20:33 WBC 10.2 RBC 3.58 L Hgb 10.4 Hct 31.0 MCV 87 MCH 29 MCHC 33 RDW 14.8 Plt Count 195 Blood Type O POSITIVE Antibody Screen Negative
[2019-07-23] MEDS ORDERED: DEXMEDETOMIDINE 200 MCG/2 ML VIAL IV ONE (13:49)
--- NOTE | 2019-07-23 14:23 | Anesthesia Consultation ---
Anesthesia Consult and Med Hx Date of service: 07/23/19 - Airway Anesthetic Teeth Evaluation: Good ROM Head & Neck: Adequate Mental/Hyoid Distance: Adequate Mallampati Class: Class II Intubation Access Assessment: Probably Good - Pulmonary Exam CTA: Yes - Cardiac Exam Cardiac Exam: No Murmur - Pre-Operative Health Status ASA Pre-Surgery Classification: ASA2 Proposed Anesthetic Plan: Epidural - Pulmonary Hx Smoking: Yes Hx Asthma: No Hx Respiratory Symptoms: No SOB: No COPD: No Home Oxygen Therapy: No Hx Pneumonia: No Hx Sleep Apnea: No - Cardiovascular System Hx Hypertension: No Hx Coronary Artery Disease: No Hx Heart Attack/AMI: No Hx Angina: No Hx Percutaneous Transluminal Coronary Angioplasty (PTCA): No Hx Cardia Arrhythmia: No Hx Pacemaker: No Hx Internal Defibrillator: No Hx Valvular Heart Disease: No Hx Heart Murmur: No Hx Peripheral Vascular Disease: No - Central Nervous System Hx Neuromuscular Disorder: No Hx Seizures: No CVA: No Hx Back Pain: No Hx Psychiatric Problems: Yes (depression no meds) - Gastrointestinal Hx Ulcer: No Hx Gastroesophageal Reflux Disease: No - Endocrine Hx Renal Disease: No Hx End Stage Renal Disease: No Hx Cirrhosis: No Hx Liver Disease: No Hx Insulin Dependent Diabetes: No Hx Non-Insulin Dependent Diabetes: No Hx Thyroid Disease: No Hx Hypothyroidism: No Hx Hyperthyroidism: No - Hematic Hx Anemia: No Hx Sickle Cell Disease: No - Other Systems Hx Alcohol Use: No Hx Substance Use: Yes Hx Cancer: No Hx Obesity: No
[2019-07-23] MEDS ORDERED: ePHEDrine SULFATE 50 MG/1 ML INJ IV PRN (14:24)
[2019-07-23] MEDS ORDERED: NALOXONE 2 MG/2 ML INJ IV PRN (14:24)
[2019-07-23] MEDS: fentaNYL-BUPIV 2 MCG/ML-0.125% 200 MCG/100 ML BAG EPIDURAL SCH ×2 (15:00→21:47)
[2019-07-24] MEDS ORDERED: BUPIVACAINE/PF (0.25%) 2.5 MG/ML 10 ML VIAL INFILTRATI ONE (00:54)
[2019-07-24] MEDS: LACTATED RINGERS 1,000 ML IV SCH (01:53)
[2019-07-24] MEDS: fentaNYL-BUPIV 2 MCG/ML-0.125% 200 MCG/100 ML BAG EPIDURAL SCH (06:01)
[2019-07-24] MEDS ORDERED: BUPIVACAINE/PF (0.5%) 5 MG/1 ML 10 ML VIAL INFILTRATI ONE ×2 (06:23→10:33)
[2019-07-24] MEDS ORDERED: GENTAMICIN 80 MG in SODIUM CHLORIDE 0.9% 100 ML IV ONE (07:59)
--- NOTE | 2019-07-24 07:59 | Progress Note ---
Assessment and Plan - Patient Problems (1) 40 weeks gestation of Onset Date: 07/22/19 Current Visit: Yes Status: Acute Plan to address problem: A: IUP @ 41 1/7 weeks in labor GBS Positive Failure to progress P: Will proceed with a C Section for delivery Subjective - Subjective Date of service: 07/24/19 Principal diagnosis: IUP @ 41 1/7 weeks Interval history: Pt is a 24yo BF EDC 07/16/19; EGA 41 1/7 weeks presented to L&D complaining of RUC's q 3-5 mins. She received care at [facility] since 12 weeks and co-managed by [facility] for Opiod abuse. She is currently on pitocin 26mu/min and rory q 3-4 mins, but cervix unchanged and actually getting swollen. Patient reports: loss of fluid, movement normal, contractions, no new complaints, no vaginal bleeding Objective - Vital Signs Vital Signs: Vital Signs - 12hr 07/23/19 07/23/19 07/23/19 19:58 20:02 20:03 Temperature Pulse Rate 89 88 88 Respiratory Rate Blood Pressure 92/60 O2 Sat by Pulse 99 99 Oximetry 07/23/19 07/23/19 07/23/19 20:08 20:13 20:18 Temperature Pulse Rate 89 85 90 Respiratory Rate Blood Pressure 93/54 O2 Sat by Pulse 98 98 97 Oximetry 07/23/19 07/23/19 07/23/19 20:23 20:28 20:33 Temperature Pulse Rate 86 84 83 Respiratory Rate Blood Pressure O2 Sat by Pulse 98 98 97 Oximetry 07/23/19 07/23/19 07/23/19 20:38 20:43 20:48 Temperature Pulse Rate 88 81 93 H Respiratory Rate Blood Pressure O2 Sat by Pulse 98 98 98 Oximetry 07/23/19 07/23/19 07/23/19 20:49 20:53 20:58 Temperature Pulse Rate 88 92 H 87 Respiratory Rate Blood Pressure 93/60 O2 Sat by Pulse 98 99 Oximetry 07/23/19 07/23/19 07/23/19 21:03 21:08 21:13 Temperature Pulse Rate 84 77 87 Respiratory Rate Blood Pressure O2 Sat by Pulse 99 99 98 Oximetry 07/23/19 07/23/19 07/23/19 21:18 21:19 21:23 Temperature Pulse Rate 73 81 114 H Respiratory Rate Blood Pressure 104/64 O2 Sat by Pulse 98 98 Oximetry 07/23/19 07/23/19 07/23/19 21:28 21:33 21:38 Temperature Pulse Rate 83 92 H 138 H Respiratory Rate Blood Pressure O2 Sat by Pulse 97 97 98 Oximetry 07/23/19 07/23/19 07/23/19 21:43 21:47 21:48 Temperature Pulse Rate 85 87 86 Respiratory Rate Blood Pressure 116/73 O2 Sat by Pulse 95 94 95 Oximetry 07/23/19 07/23/19 07/23/19 21:53 21:58 22:03 Temperature Pulse Rate 89 89 79 Respiratory Rate Blood Pressure O2 Sat by Pulse 94 99 98 Oximetry 07/23/19 07/23/19 07/23/19 22:08 22:13 22:18 Temperature Pulse Rate 85 73 77 Respiratory Rate Blood Pressure O2 Sat by Pulse 99 99 99 Oximetry 07/23/19 07/23/19 07/23/19 22:20 22:23 22:28 Temperature Pulse Rate 75 72 77 Respiratory Rate Blood Pressure 114/75 O2 Sat by Pulse 99 97 Oximetry 07/23/19 07/23/19 07/23/19 22:33 22:38 22:43 Temperature Pulse Rate 74 71 81 Respiratory Rate Blood Pressure O2 Sat by Pulse 99 99 99 Oximetry 07/23/19 07/23/19 07/23/19 22:48 22:51 22:53 Temperature Pulse Rate 84 82 83 Respiratory Rate Blood Pressure 114/71 O2 Sat by Pulse 96 94 98 Oximetry 07/23/19 07/23/19 07/23/19 22:58 23:03 23:05 Temperature Pulse Rate 97 H 95 H 103 H Respiratory Rate Blood Pressure O2 Sat by Pulse 98 96 93 Oximetry 07/23/19 07/23/19 07/23/19 23:08 23:13 23:18 Temperature Pulse Rate 95 H 89 97 H Respiratory Rate Blood Pressure O2 Sat by Pulse 96 96 97 Oximetry 07/23/19 07/23/19 07/23/19 23:19 23:23 23:28 Temperature Pulse Rate 101 H 99 H 107 H Respiratory Rate Blood Pressure 114/79 O2 Sat by Pulse 97 97 Oximetry 07/23/19 07/23/19 07/23/19 23:33 23:38 23:43 Temperature Pulse Rate 78 85 79 Respiratory Rate Blood Pressure O2 Sat by Pulse 99 100 100 Oximetry 07/23/19 07/23/19 07/23/19 23:48 23:49 23:53 Temperature Pulse Rate 87 82 81 Respiratory Rate Blood Pressure 127/73 O2 Sat by Pulse 100 99 Oximetry 07/23/19 07/24/19 07/24/19 23:58 00:03 00:08 Temperature Pulse Rate 84 85 84 Respiratory Rate Blood Pressure O2 Sat by Pulse 100 100 100 Oximetry 07/24/19 07/24/19 07/24/19 00:13 00:15 00:18 Temperature 99.0 F Pulse Rate 80 89 Respiratory 18 Rate Blood Pressure 106/68 O2 Sat by Pulse 99 99 Oximetry 07/24/19 07/24/19 07/24/19 00:23 00:28 00:33 Temperature Pulse Rate 86 82 88 Respiratory Rate Blood Pressure O2 Sat by Pulse 99 98 98 Oximetry 07/24/19 07/24/19 07/24/19 00:38 00:43 00:48 Temperature Pulse Rate 93 H 88 85 Respiratory Rate Blood Pressure 107/59 O2 Sat by Pulse 99 98 98 Oximetry 07/24/19 07/24/19 07/24/19 00:53 00:55 00:57 Temperature Pulse Rate 97 H 88 88 Respiratory Rate Blood Pressure 125/81 120/78 O2 Sat by Pulse 98 Oximetry 07/24/19 07/24/19 07/24/19 00:58 01:01 01:03 Temperature Pulse Rate 104 H 82 82 Respiratory Rate Blood Pressure 132/86 O2 Sat by Pulse 96 95 Oximetry 07/24/19 07/24/19 07/24/19 01:04 01:08 01:13 Temperature Pulse Rate 81 76 76 Respiratory Rate Blood Pressure O2 Sat by Pulse 94 97 96 Oximetry 07/24/19 07/24/19 07/24/19 01:18 01:23 01:28 Temperature Pulse Rate 82 82 83 Respiratory Rate Blood Pressure 120/70 O2 Sat by Pulse 95 95 96 Oximetry 07/24/19 07/24/19 07/24/19 01:33 01:38 01:43 Temperature Pulse Rate 85 82 85 Respiratory Rate Blood Pressure O2 Sat by Pulse 95 95 95 Oximetry 07/24/19 07/24/19 07/24/19 01:48 01:50 01:53 Temperature Pulse Rate 83 80 78 Respiratory Rate Blood Pressure 119/64 O2 Sat by Pulse 95 97 Oximetry 07/24/19 07/24/19 07/24/19 01:58 02:03 02:08 Temperature Pulse Rate 75 78 79 Respiratory Rate Blood Pressure O2 Sat by Pulse 97 97 97 Oximetry 07/24/19 07/24/19 07/24/19 02:13 02:18 02:20 Temperature Pulse Rate 79 83 81 Respiratory Rate Blood Pressure 115/66 O2 Sat by Pulse 96 96 Oximetry 07/24/19 07/24/19 07/24/19 02:23 02:28 02:33 Temperature Pulse Rate 81 76 80 Respiratory Rate Blood Pressure O2 Sat by Pulse 96 97 97 Oximetry 07/24/19 07/24/19 07/24/19 02:38 02:43 02:48 Temperature Pulse Rate 77 78 78 Respiratory Rate Blood Pressure 111/62 O2 Sat by Pulse 96 96 96 Oximetry 07/24/19 07/24/19 07/24/19 02:53 02:58 03:00 Temperature Pulse Rate 77 92 H 92 H Respiratory Rate Blood Pressure O2 Sat by Pulse 96 97 94 Oximetry 07/24/19 07/24/19 07/24/19 03:03 03:07 03:08 Temperature Pulse Rate 91 H 78 78 Respiratory Rate Blood Pressure O2 Sat by Pulse 95 94 95 Oximetry 07/24/19 07/24/19 07/24/19 03:09 03:13 03:18 Temperature 98.8 F Pulse Rate 79 76 Respiratory 20 Rate Blood Pressure O2 Sat by Pulse 95 95 Oximetry 07/24/19 07/24/19 07/24/19 03:19 03:23 03:28 Temperature Pulse Rate 77 76 83 Respiratory Rate Blood Pressure 98/54 O2 Sat by Pulse 95 95 Oximetry 07/24/19 07/24/19 07/24/19 03:33 03:38 03:43 Temperature Pulse Rate 84 80 78 Respiratory Rate Blood Pressure O2 Sat by Pulse 96 95 97 Oximetry 07/24/19 07/24/19 07/24/19 03:48 03:49 03:53 Temperature Pulse Rate 83 83 71 Respiratory Rate Blood Pressure 96/51 O2 Sat by Pulse 96 97 Oximetry 07/24/19 07/24/19 07/24/19 03:58 04:03 04:08 Temperature Pulse Rate 81 97 H 85 Respiratory Rate Blood Pressure O2 Sat by Pulse 97 97 96 Oximetry 07/24/19 07/24/19 07/24/19 04:13 04:18 04:19 Temperature Pulse Rate 89 80 75 Respiratory Rate Blood Pressure 95/52 O2 Sat by Pulse 98 98 Oximetry 07/24/19 07/24/19 07/24/19 04:23 04:28 04:33 Temperature Pulse Rate 79 81 87 Respiratory Rate Blood Pressure O2 Sat by Pulse 98 97 96 Oximetry 07/24/19 07/24/19 07/24/19 04:38 04:43 04:48 Temperature Pulse Rate 89 98 H 84 Respiratory Rate Blood Pressure 120/65 O2 Sat by Pulse 97 97 98 Oximetry 07/24/19 07/24/19 07/24/19 04:53 04:58 05:03 Temperature Pulse Rate 86 87 96 H Respiratory Rate Blood Pressure O2 Sat by Pulse 99 99 99 Oximetry 07/24/19 07/24/19 07/24/19 05:08 05:13 05:18 Temperature Pulse Rate 85 102 H 106 H Respiratory Rate Blood Pressure O2 Sat by Pulse 99 98 97 Oximetry 07/24/19 07/24/19 07/24/19 05:23 05:25 05:49 Temperature Pulse Rate 102 H 91 H 83 Respiratory Rate Blood Pressure 118/70 O2 Sat by Pulse 97 86 Oximetry 07/24/19 07/24/19 07/24/19 06:20 06:49 07:19 Temperature Pulse Rate 96 H 105 H 86 Respiratory Rate Blood Pressure 122/77 112/70 112/64 O2 Sat by Pulse Oximetry 07/24/19 07:49 Temperature Pulse Rate 81 Respiratory Rate Blood Pressure 107/65 O2 Sat by Pulse Oximetry - Exam Abdomen: Present: normal appearance Uterus: Present: normal FHR: category 1 Uterine Contraction Monitor Mode: External Cervical Dilatation: 5 Cervical Effacement Percentage: 60 station: -2 Uterine Contraction Pattern: Regular Uterine Tone Measurement Phase: Contraction Uterine Contraction Intensity: Moderate - Labs Labs: Abnormal Labs 07/22/19 20:33 RBC 3.58 L Laboratory Tests 07/22/19 07/22/19 20:33 20:33 WBC 10.2 RBC 3.58 L Hgb 10.4 Hct 31.0 MCV 87 MCH 29 MCHC 33 RDW 14.8 Plt Count 195 Blood Type O POSITIVE Antibody Screen Negative
[2019-07-24] MEDS ORDERED: OXYTOCIN 20 UNIT/1000ML DRIP 20 UNITS/1,000 ML BAG IV SCH ×2 (08:00→14:00)
[2019-07-24] MEDS ORDERED: BICITRA ORAL LIQD 30ML PO ONE (08:00)
[2019-07-24] MEDS ORDERED: LACTATED RINGERS 1,000 ML IV SCH (08:00)
[2019-07-24] MEDS ORDERED: FAMOTIDINE 20 MG/2 ML INJ IV ONE (09:00)
[2019-07-24] MEDS ORDERED: METOCLOPRAMIDE 10 MG/2 ML INJ IV ONE (09:00)
[2019-07-24] MEDS ORDERED: GENTAMICIN/NS 80 MG/100 ML 100 ML IV ONE (09:00)
[2019-07-24] MEDS ORDERED: ONDANSETRON 4 MG/2 ML INJ IV PRN ×3 (10:10→13:56)
[2019-07-24] MEDS ORDERED: HYDROmorphone 1 MG/1 ML INJ IV PRN ×4 (10:10→13:56)
--- NOTE | 2019-07-24 10:10 | Anesthesia Day of Surgery ---
Anesthesia Day of Surgery - Day of Surgery Patient Examined: Yes Patient H&P Reviewed: Yes Patient is NPO: Yes Beta Blockers: No Cardiac Clearance: No Pulmonary Clearance: No Fabian's Test: N/A
[2019-07-24] MEDS ORDERED: WATER FOR IRRIG STERILE 1,500 ML BOTTLE IR ONE (12:45)
[2019-07-24] MEDS ORDERED: SODIUM CHLORIDE 0.9% IRR 1,500 ML BOTTLE IR ONE (12:45)
[2019-07-24] MEDS ORDERED: DEXMEDETOMIDINE 200 MCG/2 ML VIAL IV ONE (12:50)
[2019-07-24] MEDS ORDERED: LIDOCAINE 2%/EPINEPHRINE 1:200,000 VIAL (20 ML) INFILTRATI ONE (12:50)
--- NOTE | 2019-07-24 13:29 | Operative Report ---
Operative Report Operative Report: Date of procedure: 07/24/2019 Pre-operative diagnosis: 1. Intrauterine at 41 1/7 weeks in labor 2. Failure to progress 3. Cephalopelvic disproportion Post-operative diagnosis: same Procedure name(s): Primary low transverse section Surgeon: Michelet Ghotra MD Turntable Worker: None Anesthesia: Spinal anesthesia by Radha Flor CRNA EBL: 700 mL's Findings: A 3625 gm male infant Apgars 8 at 1 minute 9 at 5 minutes. Nuchal cord x 2. Clear amniotic fluid. Normal uterus with normal tubes and ovaries bilaterally. Procedure: After the patient was prepped and draped in usual sterile fashion, and after satisfactory level of spinal anesthesia was obtained, the skin knife was used to make a transverse skin incision. The incision was incised down to layer of the fascia, which was nicked in the midline and extended laterally using the Bovie cautery. The rectus muscles were dissected off the rectus fascia both superiorly and inferiorly. The rectus bellies in the midline, and the peritoneum was entered under direct visualization. The peritoneal incision was extended superiorly and inferiorly. A bladder flap was created and the bladder blade was then placed. The uterus was scored in a curvilinear linear fashion, entered in the midline revealing clear amniotic fluid. The 's head was delivered onto the surgical field, nuchal cord x 2 reduced and the oropharynx and nasopharynx were bulb suctioned. The rest of the 's body was delivered, cord was doubly clamped and cut and the was handed to the awaiting respiratory team. The placenta was manually removed from the uterus, and the uterus removed from its normal anatomical position. After gentle uterine lavage, the incision was inspected and found to be without extensions. It was then closed in 2 layers using 0 Vicryl suture in a running interlocking fashion, the second layer imbricating the first. After good hemostasis was achieved, copious amounts or irrigation was performed, and the gutters were suctioned free of blood and blood clots. Next, the peritoneum was re-approximated using 3-0 Vicryl suture in a running interlocking fashion, and then the rectus muscles were loosely re-approximated using 3-0 Vicryl suture in a [id number] configuration. The fascia was then re-approximated using #1 Vicryl suture in running interlocking fashion. The subcutaneous layer was made hemostatic using Bovie cautery, and the skin edges re-approximated using 4-0 Vicryl suture in a sub-cuticular fashion. Patient tolerated the procedure well was transported to recovery in stable condition.
[2019-07-24] MEDS ORDERED: SENNOSIDES 8.6 MG TAB PO PRN (13:31)
[2019-07-24] MEDS ORDERED: NALOXONE 0.4 MG/1 ML INJ IV PRN (13:31)
[2019-07-24] MEDS ORDERED: LANOLIN/ZINC/DIMETHICONE (LANSINOH) 7 GM TP PRN (13:31)
[2019-07-24] MEDS ORDERED: SIMETHICONE 80 MG CHEW TAB PO PRN (13:31)
[2019-07-24] MEDS ORDERED: WITCH HAZEL/ GLYCERIN PAD TP PRN (13:31)
[2019-07-24] MEDS ORDERED: MAGNESIUM HYDROXIDE (MOM) ORAL LIQD UDC PO PRN (13:31)
[2019-07-24] MEDS ORDERED: ACETAMINOPHEN 325 MG TAB PO PRN (13:31)
--- NOTE | 2019-07-24 13:55 | Post Anesthesia Evaluation ---
- Post Anesthesia Evaluation Patient Participated: Yes Airway Patent: Yes Stable Respiratory Function: Yes Nausea/Vomiting: No Temp > 96.8F: Yes Pain Manageable: Yes Adequeate Hydration: Yes Anesthesia Complications: No Block Receding Appropriately: Yes Patient on Ventilator: Yes
[2019-07-24] MEDS ORDERED: D5W/LACTATED RINGERS 1,000 ML IV SCH (14:00)
[2019-07-24] MEDS: CLINDAMYCIN 600 MG/50 mL 600 MG/50 ML BAG IV SCH ×2 (16:00→23:37)
[2019-07-24] MEDS: KETOROLAC 30 MG/1 ML INJ IV PRN (16:27)
[2019-07-24] MEDS: HYDROcodone/ACETAMINOPHEN 5-325 MG TAB PO PRN (19:55)
[2019-07-24] MEDS ORDERED: CLINDAMYCIN 600 MG/50 mL 600 MG/50 ML BAG IV SCH (23:00)
[2019-07-25] MEDS: KETOROLAC 30 MG/1 ML INJ IV PRN (01:39)
[2019-07-25 01:51] LABS: Hematocrit 31.3 % (30.3-42.9); Hemoglobin 10.2 gm/dl (10.1-14.3)
[2019-07-25] MEDS: oxyCODONE /ACETAMINOPHEN 5-325MG TAB PO PRN ×2 (05:38→11:44)
--- NOTE | 2019-07-25 09:14 | Progress Note ---
Assessment and Plan - Patient Problems (1) 40 weeks gestation of Onset Date: 07/22/19 Current Visit: Yes Status: Resolved (2) Status post Current Visit: Yes Status: Resolved Plan to address problem: A: S/P Primary C Section - POD #1 Doing well Asymptomatic anemia - stable P: Continue RPOC Anticipate discharge in 24-48hrs Subjective - Subjective Date of service: 07/25/19 Principal diagnosis: s/p Primary C Section - POD #1 Interval history: Pt is feeling well without complaints. Bleeding improved. Patient reports: appetite normal, voiding normally, pain well controlled, flatus, ambulating normally, no dizzy ambulation, no nauseated [place]: doing well, nursing well, bottle feeding Objective - Vital Signs Latest vital signs: Vital Signs Temp Pulse Resp BP BP Pulse Ox 07/25/19 00:17 98.6 F 110 H 20 101/68 96 07/24/19 21:27 98.4 F 121 H 20 105/65 94 07/24/19 16:00 98.1 F 89 18 120/68 97 07/24/19 14:45 98 F 90 20 119/67 96 07/24/19 14:30 90 15 103/64 96 07/24/19 14:15 92 H 15 107/67 97 07/24/19 14:00 88 16 112/71 97 07/24/19 13:55 87 16 117/69 97 07/24/19 13:53 87 17 117/69 97 07/24/19 13:43 97.8 F 86 17 120/61 97 07/24/19 12:20 87 116/72 07/24/19 11:48 76 119/59 07/24/19 11:18 78 124/76 07/24/19 10:48 81 125/76 07/24/19 10:18 99 H 109/56 07/24/19 09:49 93 H 108/55 07/24/19 09:18 88 121/68 Intake and Output 07/24/19 07/25/19 07/25/19 22:59 06:59 14:59 Intake Total 490 120 Output Total 800 400 Balance -310 -280 Intake: IV 250 CLEOCIN 600 MG/50 mL 600 50 mg In 50 ml @ 100 mls/hr IV Q8H [facility] Rx#:[id number] Oral 240 120 Output: Urine 800 400 Indwelling Catheter 800 Void 400 Other: Total, Intake Amount 240 120 Total, Output Amount 800 400 # Voids Void 1 - Exam Breasts: Present: deferred Abdomen: Present: normal appearance, soft Uterus: Present: normal, firm, fundal height below umbilicus Extremities: Present: normal Incision: Present: normal, dry, intact, dressed - Labs Labs: Laboratory Tests 07/22/19 07/22/19 07/25/19 20:33 20:33 01:15 WBC 10.2 RBC 3.58 L Hgb 10.4 10.2 Hct 31.0 31.3 MCV 87 MCH 29 MCHC 33 RDW 14.8 Plt Count 195 Blood Type O POSITIVE Antibody Screen Negative
[2019-07-25] MEDS: FERROUS SULFATE 325 MG TAB PO SCH (11:44)
[2019-07-25] MEDS: PRENATAL VIT27-FE FUMARATE-FOLIC ACID VIT TAB PO SCH (11:44)
[2019-07-25] MEDS ORDERED: TETANUS,DIPH,PERTUSS(ACELL) VACCINE 0.5 ML SYRINGE IM ONE (13:33)
[2019-07-25] MEDS ORDERED: MEASLES, MUMPS & RUBELLA 12,500 UNIT/0.5 ML VACCINE SUB-Q ONE (13:33)
[2019-07-25] MEDS: IBUPROFEN 800 MG TAB PO PRN (17:28)
[2019-07-25] MEDS: HYDROcodone/ACETAMINOPHEN 5-325 MG TAB PO PRN (17:29)
[2019-07-26] MEDS: HYDROcodone/ACETAMINOPHEN 5-325 MG TAB PO PRN ×4 (03:19→16:57)
[2019-07-26] MEDS: IBUPROFEN 800 MG TAB PO PRN ×2 (05:51→15:40)
[2019-07-26] MEDS: FERROUS SULFATE 325 MG TAB PO SCH (10:04)
[2019-07-26] MEDS: PRENATAL VIT27-FE FUMARATE-FOLIC ACID VIT TAB PO SCH (10:04)
--- NOTE | 2019-07-26 11:21 | Progress Note ---
Assessment and Plan - Patient Problems (1) 40 weeks gestation of Onset Date: 07/22/19 Current Visit: Yes Status: Resolved (2) Status post Current Visit: Yes Status: Resolved Plan to address problem: A: S/P Primary C Section - POD #2 Doing well Asymptomatic anemia - stable P: May go home today. Subjective - Subjective Date of service: 07/26/19 Principal diagnosis: s/p Primary C Section - POD #2 Interval history: Pt is feeling well without complaints. She is tolerating a reg diet without nausea or vomiting, ambulating and voiding without difficulty, and wants to go home today. Patient reports: appetite normal, voiding normally, pain well controlled, flatus, ambulating normally, no dizzy ambulation, no nauseated [place]: doing well, nursing well, bottle feeding Objective - Vital Signs Latest vital signs: Vital Signs Temp Pulse Resp BP Pulse Ox 07/26/19 09:26 98.2 F 75 20 117/83 99 07/26/19 08:06 20 07/26/19 01:40 97.4 F L 69 16 114/75 95 07/25/19 17:06 99.0 F 110 H 20 136/89 98 07/25/19 12:20 98.2 F 108 H 20 137/91 96 Intake and Output 07/25/19 07/26/19 07/26/19 22:59 06:59 14:59 Intake Total 600 Balance 600 Intake: Intake, Free Water 600 Other: # Voids Void 2 - Exam Breasts: Present: deferred Abdomen: Present: normal appearance, soft Uterus: Present: normal, firm, fundal height below umbilicus Extremities: Present: normal, edema Incision: Present: normal, dry, intact
--- NOTE | 2019-07-26 13:45 | Discharge Summary ---
Providers - Providers Date of Admission: 07/22/19 11:58 Date of discharge: 07/26/19 Attending physician: KATIA CAR Primary care physician: KATIA CAR Hospitalization Reason for admission: induction of labor, IUP at term Delivery: Procedure: section, primary low transverse Episiotomy: none Laceration: none Incision: normal, dry, intact Other procedures: none complications: none Discharge diagnosis: IUP at term delivered [place] baby: male Hospital course: Pt is a 24yo BF EDC 07/16/19; EGA 41 08/03 weeks who presented to L&D complaining of RUC's q 3-5 mins. She received care at [facility] since 12 weeks and co-managed by [facility] for Opiod abuse. She was started on pitocin and rory q 3-4 mins, but without cervical change, and thus was delivered by an uncomplicated C Section. Postoperative course was unremarkable, and by POD #2 she was tolerating a reg diet without nausea or vomiting, ambulating and voiding without difficulty. She was therefore discharged to home on POD #2 in stable condition. Condition at discharge: Good Disposition: DC-01 TO HOME OR SELFCARE - Discharge Diagnoses (1) 40 weeks gestation of Status: Resolved (2) Status post Status: Resolved Plan - Discharge Medications Prescriptions: Ferrous Sulfate [Feosol 325 MG tab] 325 mg PO BID #60 tablet Ibuprofen [Motrin 800 MG tab] 800 mg PO Q6H PRN #30 tablet PRN Reason: Pain, Mild (1-3) HYDROcodone/APAP 5-325 [Hyrum 5-325 mg TAB] 1 each PO Q6HR PRN #30 tablet PRN Reason: Pain, Moderate (4-6) Vit-Fe Fumar-FA [ Vitamin] 1 each PO QDAY #30 tablet - Provider Discharge Summary Activity: routine, no sex for 6 weeks, no heavy lifting 4 weeks, no strenuous exercise Diet: routine Instructions: routine Additional instructions: [] Smoking cessation referral if applicable(refer to patient education folder for contact #) [] Refer to [employer] [facility] Booklet Call your doctor immediately for: * Fever > 100.5 * Heavy vaginal bleeding ( >1 pad per hour) * Severe persistent headache * Shortness of breath * Reddened, hot, painful area to leg or breast * Drainage or odor from incision. * Keep incision clean and dry at all times and follow doctor's instructions regarding bathing/showering - Follow up plan Follow up: KATIA CAR MD [Primary Care Provider] - 14 Days
[2019-07-26 18:20] VITALS: BP 124/80
== END 2019-07-26 20:15 | disposition home or self-care (01) | DRG 765 ==
LOC: TRG 11:57 → OBSVTOIN 11:58 → TRG 11:58 → LD 11:58 → TRG 19:39 → OB 07-24 15:37
PROVIDERS: ADMIT Obstetrics & Gynecology; ATTEND Obstetrics & Gynecology
PROC: 10D00Z1 Extraction of Products of Conception, Low, Open Approach (ICD-10-PCS; principal; 2019-07-24)
PROC: 3E0234Z Introduction of Serum, Toxoid and Vaccine into Muscle, Percutaneous Approach (ICD-10-PCS; 2019-07-25)
PROC: 3E0134Z Introduction of Serum, Toxoid and Vaccine into Subcutaneous Tissue, Percutaneous Approach (ICD-10-PCS; 2019-07-25)
DX: O33.9 Maternal care for disproportion, unspecified (principal); O99.324 Drug use complicating childbirth; O10.92 Unspecified pre-existing hypertension complicating childbirth; O99.824 Streptococcus B carrier state complicating childbirth; O99.02 Anemia complicating childbirth; O62.0 Primary inadequate contractions; O99.334 Smoking (tobacco) complicating childbirth; O99.344 Other mental disorders complicating childbirth; F32.9 Major depressive disorder, single episode, unspecified; F19.90 Other psychoactive substance use, unspecified, uncomplicated; O99.52 Diseases of the respiratory system complicating childbirth; J45.909 Unspecified asthma, uncomplicated; F41.9 Anxiety disorder, unspecified; Z82.49 Family history of ischemic heart disease and other diseases of the circulatory system; Z3A.41 41 weeks gestation of pregnancy; Z37.0 Single live birth; Z88.1 Allergy status to other antibiotic agents; Z91.040 Latex allergy status; Z23 Encounter for immunization
CPT/HCPCS: 36415; 76815; 76819; 85014; 85018; 85027; 86850; 86900; 86901; 90686; G0378; J1580; J1885; J2590; J2765; J3490; J7120; J7121

== ENCOUNTER 2019-12-25 09:24 | Emergency (ER) | payer OTHER ==
[2019-12-25 09:30] VITALS: BP 122/80
--- NOTE | 2019-12-25 10:02 | Emergency Department Report ---
ED Back Pain/Injury HPI - General Chief Complaint: Back Pain/Injury Stated Complaint: BACK PAIN Time Seen by Provider: 12/25/19 09:47 Source: patient Limitations: No Limitations - History of Present Illness Initial Comments: This is a 24-year-old female who presents to the emergency room with midline thoracic pain for 4 to 5 months. Patient states she has been seen by CANDY DIPPER and Nahed Rodarte last week. She was started on ibuprofen and muscle relaxers with worsening symptoms. Patient states she delivered by 5 months ago and received the epidural. She is reporting pain since receiving the epidural. Her last menstrual period was November 12, 2019, G2, miscarriage. She denies urinary frequency, urgency, dysuria, vaginal discharge, recent injury, fever, or chills. MD Complaint: back pain Onset/Timin -: month(s) Similar Symptoms Previously: No Radiation: none Severity: severe Severity scale (0 -10): 9 Quality: aching Consistency: intermittent Improves With: immobilization Worsens With: movement, sitting upright, walking Associated Symptoms: denies: numbness, difficulty urinating, incontinence, fever/chills Treatments Prior to Arrival: NSAIDS, other (Muscle relaxant) - Related Data Previous Rx's Medication Instructions Recorded Last Taken Type Ferrous Sulfate [Feosol 325 MG tab] 325 mg PO BID #60 tablet 07/26/19 Unknown Rx HYDROcodone/APAP 5-325 [[place] 1 each PO Q6HR PRN #30 tablet 07/26/19 Unknown Rx 5-325 mg TAB] Ibuprofen [Motrin 800 MG tab] 800 mg PO Q6H PRN #30 tablet 07/26/19 Unknown Rx Vit-Fe Fumar-FA [ 1 each PO QDAY #30 tablet 07/26/19 Unknown Rx Vitamin] Allergies Allergy/AdvReac Type Severity Reaction Status Date / Time amoxicillin Allergy Hives Verified 08/28/17 04:54 erythromycin base Allergy Hives Verified 08/28/17 04:54 latex Allergy Rash Verified 12/01/18 22:14 ED Review of Systems ROS: Stated complaint: BACK PAIN Other details as noted in HPI Constitutional: denies: chills, fever Respiratory: denies: cough, shortness of breath, wheezing Cardiovascular: denies: chest pain, palpitations Genitourinary: denies: urgency, dysuria, discharge Musculoskeletal: back pain. denies: joint swelling, arthralgia Skin: denies: rash, lesions Neurological: denies: headache, weakness, paresthesias Psychiatric: denies: anxiety, depression ED Past Medical Hx - Past Medical History Right arm tumor, Ovarian Cyst Family history: hypertension ED Back Pain Physical Exam - Exam General: Vital signs noted. No distress. Alert and acting appropriately. Back/Abdomen: Yes Perithoracic Tenderness (midline T-spine tenderness with TTP, no stepoff, deformity, or erythema), No Abdominal Tenderness, No Perilumbar Tenderness, No Sacroiliac Tenderness, No Flank Tenderness, No Straight Leg Raise Pain Neuro: Yes Normal Sensation, Yes Normal DTR's, Yes Normal Gait, No Motor Weakness ED Course Vital Signs 12/25/19 09:25 Temperature 98.4 F Pulse Rate 78 Respiratory 16 Rate Blood Pressure 122/80 O2 Sat by Pulse 100 Oximetry ED Medical Decision Making - Lab Data Result diagrams: 12/25/19 10:06 Lab Results 12/25/19 12/25/19 Range/Units 10:06 10:06 Sodium 141 (137-145) mmol/L Potassium 4.6 (3.6-5.0) mmol/L Chloride 103.7 (98-107) mmol/L Carbon Dioxide 26 (22-30) mmol/L Anion Gap 16 mmol/L BUN 9 (7-17) mg/dL Creatinine 0.7 (0.7-1.2) mg/dL Estimated GFR > 60 ml/min BUN/Creatinine Ratio 13 % Glucose 112 H (65-100) mg/dL Calcium 10.1 (8.4-10.2) mg/dL Total Bilirubin 0.30 (0.1-1.2) mg/dL AST 16 (5-40) units/L ALT 14 (7-56) units/L Alkaline Phosphatase 88 (35-129) units/L Total Protein 7.5 (6.3-8.2) g/dL Albumin 4.6 (3.9-5) g/dL Albumin/Globulin Ratio 1.6 % Urine Color Yellow (Yellow) Urine Turbidity Clear (Clear) Urine pH 8.0 H (5.0-7.0) Ur Specific [place] 1.010 (1.003-1.030) Urine Protein <15 mg/dl (Negative) mg/dL Urine Glucose (UA) Neg (Negative) mg/dL Urine Ketones Neg (Negative) mg/dL Urine Blood Neg (Negative) Urine Nitrite Neg (Negative) Urine Bilirubin Neg (Negative) Urine Urobilinogen < 2.0 (<2.0) mg/dL Ur Leukocyte Esterase Neg (Negative) Urine WBC (Auto) 1.0 (0.0-6.0) /HPF Urine RBC (Auto) 3.0 (0.0-6.0) /HPF U Epithel Cells (Auto) 2.0 (0-13.0) /HPF Urine Mucus Few /HPF Urine HCG, Qual Negative (Negative) - Radiology Data Radiology results: report reviewed CT THORACIC SPINE WITHOUT CONTRAST INDICATION / CLINICAL INFORMATION: Midline thoracic spine pain. Patient reports symptoms are 4 months duration. TECHNIQUE: Axial CT images were obtained through the thoracic spine. Sagittal and coronal reformatted images were produced. All CT scans at this location are performed using CT dose reduction for ALARA by means of automated exposure control. COMPARISON: None available. FINDINGS: VERTEBRAE: No significant abnormality. There is no indication of fracture or bone destruction. ALIGNMENT: Normal alignment is maintained throughout the thoracic region. DISC SPACES: Disc height is normally preserved throughout. FACET and COSTOVERTEBRAL JOINTS: There is no indication of arthritic change at the facet or costovertebral joints. CERVICOTHORACIC JUNCTION:No significant abnormality. SPINAL CANAL: The spinal canal is generous in size throughout the thoracic region. PARASPINAL SOFT TISSUES: No significant abnormality. Superior mediastinum and paraspinous soft tissues have an unremarkable appearance. ADDITIONAL FINDINGS: None. LUNGS: Visualized portions the lung are free from confluent infiltrate. No lung nodules are identified. There is no indication of pleural effusion. IMPRESSION: 1. No abnormalities are identified on CT thoracic spine without contrast. - Medical Decision Making 24-year-old female complaining of back pain for 5 months. Patient is nontoxic appearing and stable. Vitals are normal. Work-up: Urinalysis, test, and CT of thoracic without contrast. There is midline thoracic tenderness on palpation. Negative straight leg test. Denies change in urinary or bowel pattern. Given history, exam, and work-up, there is low suspicion for spine fracture or other acute spinal syndrome. At this time there are no signs of trauma. CT of thoracic spine no acute findings. Patient instructed to follow- up with primary care doctor. Referral to orthopedic surgeon as needed. They have been given strict return her precautions for delayed possible symptoms. Patient discharged with prompt follow-up with primary care physician. Critical care attestation.: If time is entered above; I have spent that time in minutes in the direct care of this critically ill patient, excluding procedure time. ED Disposition Clinical Impression: Back pain Qualifiers: Back pain location: thoracic back pain Chronicity: acute Back pain laterality: midline Qualified Code(s): M54.6 - Pain in thoracic spine Disposition: TO HOME OR SELFCARE Is pt being admited?: No Condition: Stable Instructions: Arthralgia (ED) Additional Instructions: Rest Use ice or heat on affected area for 20 minutes and off for 2 hours. Take pain medication every 6-8 hours as needed for pain. Follow up with Primary Care Provider in 2-3 days. Referrals: AJITH HEBERT MD [Primary Care Provider] - 3-5 Days JERMAIN SHEPPARD MD [Staff Physician] - 3-5 Days JANNY JAIN MD [Staff Physician] - 3-5 Days [facility] [Provider Group] - 3-5 Days Time of Disposition: 12:56
[2019-12-25 10:17] LABS: Bilirubin,Urine NEG (Negative); Blood,Urine NEG (Negative); Color,Urine Yellow (Yellow); Mucus,Urine FEW /HPF; Protein,Urine <15 mg/dL mg/dL (Negative); Urobilinogen,Urine < 2.0 mg/dL (<2.0)
[2019-12-25 10:51] LABS: HCG Qualitative,Urine Negative (Negative)
[2019-12-25 11:04] LABS: Alanine Aminotransferase 14 units/L (7-56); Albumin 4.6 g/dL (3.9-5); BUN/Creatinine Ratio 13; Blood Urea Nitrogen 9 mg/dL (7-17); Calcium 10.1 mg/dL (8.4-10.2); Hemolysis Index 21
--- NOTE | 2019-12-25 12:16 | Cat Scan Report ---
CT THORACIC SPINE WITHOUT CONTRAST INDICATION / CLINICAL INFORMATION: Midline thoracic spine pain. Patient reports symptoms are 4 months duration. TECHNIQUE: Axial CT images were obtained through the thoracic spine. Sagittal and coronal reformatted images wer e produced. All CT scans at this location are performed using CT dose reduction for ALARA by means of automated exposure control. COMPARISON: None available. FINDINGS: VERTEBRAE: No significant abnormality. There is no indication of fracture or bone destruction. ALIGNMENT: Normal alignment is maintained throughout the thoracic region. DISC SPACES: Disc height is normally preserved throughout. FACET and COSTOVERTEBRAL JOINTS: There is no indication of arthritic change at the facet or costovert ebral joints. CERVICOTHORACIC JUNCTION:No significant abnormality. SPINAL CANAL: The spinal canal is generous in size throughout the thoracic region. PARASPINAL SOFT TISSUES: No significant abnormality. Superior mediastinum and paraspinous soft tissue s have an unremarkable appearance. ADDITIONAL FINDINGS: None. LUNGS: Visualized portions the lung are free from confluent infiltrate. No lung nodules are identifie d. There is no indication of pleural effusion. IMPRESSION: 1. No abnormalities are identified on CT thoracic spine without contrast. Signer Name: Tony Rincon MD Signed: 12/25/2019 12:11 PM Workstation Name: [id number]
[2019-12-25] MEDS ORDERED: KETOROLAC 30 MG/1 ML INJ IV ONE (12:39)
[2019-12-25] MEDS ORDERED: traMADol 50 MG TAB PO ONE (13:02)
== END 2019-12-25 13:20 | disposition home or self-care (01) ==
LOC: ED 09:24
DX: M54.6 Pain in thoracic spine (principal); Z88.8 Allergy status to other drugs, medicaments and biological substances; Z88.0 Allergy status to penicillin; Z91.040 Latex allergy status; Z79.899 Other long term (current) drug therapy
CPT/HCPCS: 36415; 72128; 80053; 81001; 81025